=== PATIENT | male | born 1945 ===

== ENCOUNTER → 2017-03-14 | Outpatient (CLI) | payer MEDICARE, OTHER | LOC: GMA 10:52 | PROVIDERS: ATTEND Nurse Practitioner Family | DX: R03.0 Elevated blood-pressure reading, without diagnosis of hypertension (principal); R35.0 Frequency of micturition; R53.82 Chronic fatigue, unspecified | CPT/HCPCS: 84443; G0103 ==

== ENCOUNTER → 2018-12-15 | Outpatient (CLI) | payer MEDICARE, OTHER | LOC: GMAM 11:22 | PROVIDERS: ATTEND Family Medicine | DX: R11.2 Nausea with vomiting, unspecified (principal); I10 Essential (primary) hypertension ==